=== PATIENT | female | born 1995 | race African-American/Black ===

== ENCOUNTER 2021-02-17 11:55 | Emergency (ER) | payer SELFPAY ==
[~2021-02-17] VITALS: Ht 188 cm; Wt 86.2 kg
[~2021-02-17 11:55] MED LIST: MEDROL DOSEPAK4 MG PO; MULTIVITAMIN1 CTB; NKHM PO
[2021-02-17] MEDS ORDERED: ANTIBIOTIC28.4 GM T (12:54)
[2021-02-17] MEDS ORDERED: SEPTDS PO (12:54)
== END 2021-02-17 14:32 | disposition home or self-care (01) ==
LOC: ED 11:55
DX: S62.91XA Unspecified fracture of right hand, initial encounter for closed fracture (principal); S61.306A Unspecified open wound of right little finger with damage to nail, initial encounter; F17.200 Nicotine dependence, unspecified, uncomplicated; W19.XXXA Unspecified fall, initial encounter; Y93.89 Activity, other specified; Y92.89 Other specified places as the place of occurrence of the external cause; Y99.8 Other external cause status